=== PATIENT | male | born 1980 | race Caucasian/White ===

== ENCOUNTER 2019-02-28 09:30 | Day surgery (SDC) | payer OTHER ==
[~2019-02-28 09:30] MED LIST: LACTATED RINGERS 1,000 ML IV.SOLN IV ONE; LIDOCAINE HCL 2% PF 100MG/5ML VIAL IJ ONE; PROPOFOL 200 MG/20 ML VIAL IV ONE; fentaNYL CITRATE/PF 100 MCG/2 ML INJ. ONE
--- NOTE | 2019-03-14 17:03 | GI Report ---
DATE OF PROCEDURE: 02/28/2019 REFERRING PHYSICIAN: Dr. Cedeno. PROCEDURE PERFORMED: Endoscopy, dilatation, biopsies. SURGEON: Adán Cyr M.D., F.A.C.P. 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 He has had previous endoscopies in the [facility]. He has had esophagitis. He said they never have done esophageal dilatation. He has a globus sensation and feeling that solid pills and foods move through slowly. He has been on a PPI for many years but is not taking them correctly. He has never taken them 30 minutes before a meal, but would just take them in the morning and at bedtime. He does not use tobacco, does not chew. He is 89, and weighs 240 lbs so does have some central obesity. He belches some. He has had no abdominal surgeries. PROCEDURE MEDICATION: Propofol, as per Anesthesia. DESCRIPTION OF PROCEDURE: The Olympus video endoscope was passed through the esophagus under direct visualization. He has at least grade 2 esophagitis and a stricture at the GE junction. He has a small to moderate sized hiatal hernia. The fundus, body, antrum of the stomach a little bit of gastroparesis, decreased motility. The pylorus is open. The duodenal bulb, first and second part of the duodenum was examined, and normal. A guidewire was placed in the stomach, the endoscope removed, and a #51 which is 17 mm Savary passed without difficulty, followed by an 18 mm which was a #54F. The endoscope was reintroduced. There was a little friability, and minimal bleeding where the stricture was stretched. We also did biopsy the stricture. He does have distal esophagitis. Biopsies were taken to rule out Barretts esophagus. The patient tolerated the procedure well. FINDINGS: 1. At least grade 2 esophagitis, biopsies taken to rule out Barretts. 2. Esophageal stricture, dilated to a #54F, which is 18 mm size. 3. There is also some suggestion there may be decreased motility in the esophagus. RECOMMENDATIONS: 1. His PPI should be taken ideally 15-30 minutes before a meal. 2. Recommend he sleep with his bed elevated at least 3-4 inches. 3. Would take an antacid like Gaviscon at bedtime. 4. Weight loss, even 10-15 lbs, would be beneficial with his hiatal hernia. 5. If his symptoms still dont improve, then esophageal motility studies and pH studies would be considerations. ADÁN CYR M.D., F.A.C.P. JENNIFER/yadira R: 03/01/19 Job#: [id number] Cc: Dr. [facility]edeno [facility]ITALKeagan
== END 2019-02-28 11:19 | disposition home or self-care (01) ==
LOC: OPSURG 09:30
PROVIDERS: ATTEND Internal Medicine Gastroenterology
DX: K22.2 Esophageal obstruction (principal); K20.9 Esophagitis, unspecified; K31.84 Gastroparesis; K44.9 Diaphragmatic hernia without obstruction or gangrene
CPT/HCPCS: 43239; 43248; 88305; J2001; J2704; J3010; J7120

== ENCOUNTER 2019-03-25 14:48 | Outpatient (CLI) | payer OTHER ==
--- NOTE | 2019-03-25 19:46 | Diagnostic Imaging Report ---
PATIENT MR#: [id number] PATIENT PATIENT NAME: JOSE PONCE DATE OF : 1980 REFERRING PHYSICIAN: Juan Francisco Gutierrez EXAM DATE: 03/25/2019 ACCESSION NUMBER: [id number] EXAM DESCRIPTION: C SPINE 2 OR 3 VIEWS HISTORY: NECK PAIN, NO KNOWN INJURY COMPARISON: No relevant comparison is available at the time of interpretation. C-SPINE XRAY, 2 Views: Vertebral bodies: No compression deformities. Disc spaces: Normal height. Alignment: Mild straightening of the normal cervical lordosis without listhesis. IMPRESSION: Straightening of the normal lordosis which may indicate paraspinal muscle spasm. Read by: Dr. lE Irwin Transcribed by: El Irwin Transcribed Date: 03/25/2019 7:45:20 PM Electronically signed by: Dr. El Irwin Date signed: 03/25/2019 7:45:20 PM
--- NOTE | 2019-03-25 19:49 | Diagnostic Imaging Report ---
PATIENT MR#: [id number] PATIENT PATIENT NAME: JOSE PONCE DATE OF : 1980 REFERRING PHYSICIAN: Juan Francisco Gutierrez EXAM DATE: 03/25/2019 ACCESSION NUMBER: [id number] EXAM DESCRIPTION: T SPINE 3 VIEWS HISTORY: BACK PAIN, NO KNOWN INJURY COMPARISON: No relevant comparison is available at the time of interpretation. T-SPINE XRAY, 3 Views: Vertebral bodies: Anterior wedge compression deformities, mild at T11 and moderate T12, of uncertaint y acuity. Disc spaces: Normal height. Alignment: Normal thoracic kyphosis without listhesis. IMPRESSION: Lower thoracic anterior wedge compression deformities, of uncertainty acuity. Correlate w ith history of prior trauma. Read by: Dr. El Irwin Transcribed by: El Irwin Transcribed Date: 03/25/2019 7:48:16 PM Electronically signed by: Dr. El Irwin Date signed: 03/25/2019 7:48:16 PM
--- NOTE | 2019-03-25 22:16 | Diagnostic Imaging Report ---
PATIENT MR#: [id number] PATIENT PATIENT NAME: JOSE PONCE DATE OF : 1980 REFERRING PHYSICIAN: Juan Francisco Gutierrez EXAM DATE: 03/25/2019 ACCESSION NUMBER: [id number] EXAM DESCRIPTION: L SPINE 6 VIEWS CLINICAL HISTORY: Low back pain COMPARISON: No relevant comparison is available at the time of interpretation. L-SPINE XRAY, 7 views including obliques and flexion - extension: Vertebral bodies: No compression deformities. Disc spaces: Moderate disc narrowing at L5-S1. Alignment: Normal lumbar lordosis without listhesis on flexion extension. Facets: Degenerative arthrosis at L5-S1. IMPRESSION: Early facet arthrosis and degenerative disc narrowing at L5-S1. Read by: Dr. El Irwin Transcribed by: El Irwin Transcribed Date: 03/25/2019 10:14:59 PM Electronically signed by: Dr. El Irwin Date signed: 03/25/2019 10:14:59 PM
--- NOTE | 2019-03-25 22:18 | Diagnostic Imaging Report ---
PATIENT MR#: [id number] PATIENT PATIENT NAME: JOSE PONCE DATE OF : 1980 REFERRING PHYSICIAN: Juan Francisco Gutierrez EXAM DATE: 03/25/2019 ACCESSION NUMBER: [id number] EXAM DESCRIPTION: PELVIS AP 1 OR 2 VIEWS HISTORY: PELVIC PAIN, NO KNOWN INJURY COMPARISON: No pertinent prior studies are available at this time. PELVIS XRAY, FRONTAL VIEW: Pelvic bone: Intact appearance. Pelvic soft tissue: No calcifications along the expected course of the ureters. Hips: No fracture or dislocation. IMPRESSION: Normal pelvis radiograph. Read by: Dr. El Irwin Transcribed by: El Irwin Transcribed Date: 03/25/2019 10:16:45 PM Electronically signed by: Dr. El Irwin Date signed: 03/25/2019 10:17:14 PM
== END 2019-03-25 15:20 ==
LOC: OUT 14:48
PROVIDERS: ATTEND Chiropractor
DX: M99.15 Subluxation complex (vertebral) of pelvic region (principal); M70.61 Trochanteric bursitis, right hip; M99.06 Segmental and somatic dysfunction of lower extremity; M47.816 Spondylosis without myelopathy or radiculopathy, lumbar region; M99.02 Segmental and somatic dysfunction of thoracic region; M47.812 Spondylosis without myelopathy or radiculopathy, cervical region
CPT/HCPCS: 72040; 72072; 72170; 99202

== ENCOUNTER 2019-04-05 10:14 | Outpatient (CLI) | payer OTHER ==
[2019-04-05 10:44] LABS: BASOPHILS % 0.6 % (0.0-1.5); NEUTROPHILS # 4.6 # k/uL (1.4-7.7)
[2019-04-05 11:33] LABS: eGFR (Non-African) > 60
== END 2019-04-05 10:39 ==
LOC: OUT 10:14
PROVIDERS: ATTEND Nurse Practitioner Family
DX: G89.29 Other chronic pain (principal); M54.2 Cervicalgia; M54.6 Pain in thoracic spine; M25.552 Pain in left hip
CPT/HCPCS: 36415; 80053; 85025; 99213

== ENCOUNTER 2019-04-13 10:32 | Day surgery (SDC) | payer OTHER ==
[~2019-04-13 10:32] MED LIST changes: +DEXAMETHASONE SODIUM PHOSPHATE 10 MG/ML VIAL ONE; +MIDAZOLAM HCL 2 MG/2 ML VIAL ONE; +ONDANSETRON HCL/PF 4 MG/ 2ML VIAL ONE; +SEVOFLURANE 250 ML LIQUID IH ONE
== END 2019-04-13 12:35 | disposition home or self-care (01) ==
LOC: OPSURG 10:32
PROVIDERS: ATTEND Specialist
DX: M99.15 Subluxation complex (vertebral) of pelvic region (principal); M47.816 Spondylosis without myelopathy or radiculopathy, lumbar region; M99.06 Segmental and somatic dysfunction of lower extremity; M99.02 Segmental and somatic dysfunction of thoracic region; M47.812 Spondylosis without myelopathy or radiculopathy, cervical region; M70.61 Trochanteric bursitis, right hip
CPT/HCPCS: 22505; 27198; 27275; J2001; J2250; J2405; J2704; J3010; J7120

== ENCOUNTER 2019-04-14 10:27 | Day surgery (SDC) | payer OTHER ==
[~2019-04-14 10:27] MED LIST changes: +KETOROLAC TROMETHAMINE 30 MG/1ML VIAL ONE
== END 2019-04-14 13:30 | disposition home or self-care (01) ==
LOC: OPSURG 10:27
PROVIDERS: ATTEND Specialist
DX: M99.15 Subluxation complex (vertebral) of pelvic region (principal); M70.61 Trochanteric bursitis, right hip; M99.06 Segmental and somatic dysfunction of lower extremity; M47.816 Spondylosis without myelopathy or radiculopathy, lumbar region; M99.02 Segmental and somatic dysfunction of thoracic region; M47.812 Spondylosis without myelopathy or radiculopathy, cervical region
CPT/HCPCS: 22505; 27198; 27275; J1885; J2001; J2250; J2405; J2704; J3010; J7120

== ENCOUNTER 2019-04-15 09:49 | Day surgery (SDC) | payer OTHER ==
[~2019-04-15 09:49] MED LIST changes: -DEXAMETHASONE SODIUM PHOSPHATE 10 MG/ML VIAL ONE; -KETOROLAC TROMETHAMINE 30 MG/1ML VIAL ONE; -ONDANSETRON HCL/PF 4 MG/ 2ML VIAL ONE
== END 2019-04-15 11:55 | disposition home or self-care (01) ==
LOC: OPSURG 09:49
PROVIDERS: ATTEND Specialist
DX: M99.15 Subluxation complex (vertebral) of pelvic region (principal); M70.61 Trochanteric bursitis, right hip; M99.06 Segmental and somatic dysfunction of lower extremity; M47.816 Spondylosis without myelopathy or radiculopathy, lumbar region; M99.02 Segmental and somatic dysfunction of thoracic region; M47.812 Spondylosis without myelopathy or radiculopathy, cervical region
CPT/HCPCS: 22505; 27198; 27275; J2001; J2250; J2704; J3010; J7120